=== PATIENT | male | born 1960 | race Caucasian/White ===

== ENCOUNTER 2016-11-30 06:14 | Inpatient (IN) | payer MEDICAID, OTHER ==
[~2016-11-30] VITALS: Ht 195.6 cm; Wt 120.2 kg
[2016-11-30] MEDS ORDERED: morphine 4 MG/ML VIAL IV STA (06:33)
[2016-11-30] MEDS ORDERED: ONDANSETRON 4 MG INJ IV STA (06:33)
[2016-11-30] MEDS ORDERED: MAGNESIUM SULFATE 2 GM, MULTIVITAMINS 10 ML, THIAMINE 100 MG, FOLIC ACID 1 MG in SOD CH... IV STA (06:33)
[2016-11-30] MEDS: LORAZEPAM 2 MG INJ IV PRN ×5 (06:53→22:09)
[2016-11-30 07:32] LABS: BASOPHILS % 0.4 % (0.0-2.0); EOSINOPHILS # 0.1 10^3/ul (0.0-0.5); EOSINOPHILS % 1.8 % (0.0-7.0); HEMATOCRIT 48.9 % (42.0-52.0); HEMOGLOBIN 16.7 g/dl (14.0-18.0); LYMPHOCYTES # 1.6 10^3/ul (0.8-2.9); LYMPHOCYTES % 21.6 % (15.0-51.0); MEAN CORPUSCULAR HEMOGLOBIN 32.8 pg (29.0-33.0); MEAN CORPUSCULAR HGB CONC 34.2 g/dl (32.0-37.0); MEAN PLATELET VOLUME 8.4 fl (7.4-10.4); MONOCYTE # 0.9 10^3/ul (0.3-0.9); MONOCYTES % 11.4 % (0.0-11.0); NEUTROPHIL # 4.9 10^3/ul (1.6-7.5); NEUTROPHILS % 64.8 % (39.0-77.0); PLATELET COUNT 126 10^3/UL (140-440); RED BLOOD COUNT 5.09 10^6/ul (4.70-6.10); RED CELL DISTRIBUTION WIDTH 14.4 % (11.5-14.5); UNCORRECTED WBC 7.6 10^3/ul (4.8-10.8); WHITE BLOOD COUNT 7.6 10^3/ul (4.8-10.8)
[2016-11-30 07:38] LABS: ALBUMIN 4.7 g/dl (3.3-4.9); CHLORIDE 102 mmol/L (97-110); CONDITION 1; SODIUM 146 mmol/L (135-144)
[2016-11-30 07:39] LABS: POTASSIUM 4.1 mmol/L (3.5-5.1)
[2016-11-30 07:41] LABS: ALANINE AMINOTRANSFERASE 102 IU/L (13-69); ALBUMIN/GLOBULIN RATIO 0.97; ALKALINE PHOSPHATASE 115 IU/L (42-121); ANION GAP 26 (8-16); ASPARTATE AMINO TRANSFERASE 205 IU/L (15-46); BILIRUBIN,INDIRECT 0.5 mg/dl (0-1.1); BILIRUBIN,TOTAL 0.5 mg/dl (0.2-1.3); BLOOD UREA NITROGEN 13 mg/dl (7-20); CALCIUM 9.3 mg/dl (8.4-10.2); CARBON DIOXIDE 22 mmol/L (21-31); CREATININE 1.12 mg/dl (0.61-1.24); GLUCOSE 87 mg/dl (70-220); TOTAL PROTEIN 9.5 g/dl (6.1-8.1)
[2016-11-30 07:45] LABS: ACETAMINOPHEN < 10.0 ug/ml (10.0-30.0); SALICYLATE < 1.0 mg/dl (5.0-30.0)
--- NOTE | 2016-11-30 08:02 | RADRPT ---
PROCEDURE: CT Abdomen and Pelvis without contrast. CLINICAL INDICATION: Abdominal pain TECHNIQUE: CT scan of the abdomen and pelvis was performed on a multidetector high-resolution CT s canner without intravenous contrast. Coronal and sagittal reformatted images were obtained from the axial source images. Images were reviewed on a high-resolution PACS workstation. The total exam CTD I equals 22mGy and the total exam DLP equals 1569mGy-cm. One or more of the following dose reduction techniques were used: Automated exposure control, Adjustment of the mA and/or kV according to patie nt size, and/or use of iterative reconstruction technique. COMPARISON: None. FINDINGS: Evaluation of the solid organs is limited given the lack of intravenous contrast administration. Bibasilar atelectasis. Left upper abdominal wall fat containing hernia with abdominal wall defect measuring 4.4 x 5.6 cm (t ransverse by craniocaudal) Diffuse hypoattenuation of the liver. The pancreas, spleen and adrenals are grossly unremarkable. The left kidney is surgically absent. Punctate nonobstructing right renal stone measuring 1 mm. No evidence of hydronephrosis. No focal pericholecystic inflammatory changes. No bowel obstruction. The appendix is not visualized but there is no focal inflammatory stranding i n the right lower quadrant. Colonic diverticulosis. No significant retroperitoneal lymphadenopathy, ascites or evidence of pneumoperitoneum. Fat contain ing left inguinal hernia. Aortoiliac atherosclerosis. Lumbar dextroscoliosis with degenerative changes. IMPRESSION: Punctate 1mm nonobstructing right renal stone. Left upper abdominal wall fat containing hernia with abdominal wall defect measuring 4.4 x 5.6 cm. Fat containing left inguinal hernia. Hepatic steatosis. Colonic diverticulosis. RPTAT: AA .Quinn Clark MD, MD Date Time Electronically viewed and signed by .Quinn Clark MD, on 11/30/2016 08:02 .T/
[2016-11-30] MEDS ORDERED: LABETALOL HCL 20MG INJ IV ONE (09:00)
[2016-11-30] MEDS ORDERED: GABA-528 PO (09:07)
[2016-11-30] MEDS ORDERED: AMLO-147 PO (09:07)
--- NOTE | 2016-11-30 09:55 | ERA ---
ER Documentation Chief Complaint Date/Time DATE: 11/30/16 TIME: 09:47 Chief Complaint suicidal thoughts to run into traffic after mom disowned him yesterday HPI Patient is a 55-year-old male who comes in with 2 separate complaints. First complaint is that he has a history of renal cell carcinoma that was removed 2-3 years ago and that he has had increasing abdominal pain in that area ever since then. He says the pain has significantly increased in last 6 months and he has failed to follow up with anybody. He is concerned that the cancer has recurred. He has not had any significant weight loss, nausea, vomiting, diarrhea, dysuria, or hematuria. The second complaint is that he is suicidal. He has a plan to run into traffic and be hit by a bus or a vehicle. He says he is attempted this but every car has stopped. The remainder review systems are negative. ROS All systems reviewed and are negative except as per history of present illness. Medications Home Meds Reported Medications Gabapentin* (Gabapentin*) 800 Mg Tablet, 800 MG PO TID, #90 TAB 11/30/16 Amlodipine Besylate* (Amlodipine Besylate*) 10 Mg Tablet, 10 MG PO DAILY, #30 TAB 11/30/16 Allergies Allergies: Coded Allergies: No Known Allergy (Unverified , 11/30/16) PMhx/Soc History of Surgery: Yes (left nephrectomy) Anesthesia Reaction: No Hx Respiratory Disorders: No Hx Cardiac Disorders: Yes (htn) Hx Psychiatric Problems: Yes (anxiety,depresion) Hx Alcohol Use: Yes Hx Tobacco Use: No Smoking Status: Unknown if ever smoked FmHx Family History: diabetes Physical Exam Vitals Vital Signs Date Time Temp Pulse Resp B/P Pulse Ox O2 Delivery O2 Flow Rate FiO2 11/30/16 06:21 99.0 123 20 178/113 98 Physical Exam Const: [] Well-developed well-nourished male sitting on the bed with a depressed affect Head: Atraumatic normocephalic Eyes: Normal Conjunctiva ENT: Normal External Ears, Nose and Mouth. Neck: Full range of motion..~ No meningismus. Resp: Clear to auscultation bilaterally Cardio: Regular rate and rhythm, no murmurs Abd: Soft, patient reports tenderness to palpation around the left upper abdomen, in particular the area of the prior nephrectomy, there is no appreciable mass, no rebound, no guarding, non distended. Normal bowel sounds Skin: No petechiae or rashes Back: No midline or flank tenderness Ext: No cyanosis, or edema Neur: Awake and alert oriented 3 with a GCS of 15 Psych: Depressed mood and affect Result Diagram: 11/30/1615 11/30/16 0715 Results 24 hrs Laboratory Tests Test 11/30/16 07:15 Acetaminophen Level < 10.0ug/ml Alanine Aminotransferase (ALT/SGPT) 102IU/L Albumin 4.7g/dl Albumin/Globulin Ratio 0.97 Alkaline Phosphatase 115IU/L Anion Gap 26 Aspartate Amino Transf (AST/SGOT) 205IU/L Basophils # 0.010^3/ul Basophils % 0.4% Blood Urea Nitrogen 13mg/dl Calcium Level 9.3mg/dl Carbon Dioxide Level 22mmol/L Chloride Level 102mmol/L Creatinine 1.12mg/dl Direct Bilirubin 0.00mg/dl Eosinophils # 0.110^3/ul Eosinophils % 1.8% Ethyl Alcohol Level 107.0mg/dl Globulin 4.80g/dl Glucose Level 87mg/dl Hematocrit 48.9% Hemoglobin 16.7g/dl Indirect Bilirubin 0.5mg/dl Lipase 226U/L Lymphocytes # 1.610^3/ul Lymphocytes % 21.6% Mean Corpuscular Hemoglobin 32.8pg Mean Corpuscular Hemoglobin Concent 34.2g/dl Mean Corpuscular Volume 96.0fl Mean Platelet Volume 8.4fl Monocytes # 0.910^3/ul Monocytes % 11.4% Neutrophils # 4.910^3/ul Neutrophils % 64.8% Nucleated Red Blood Cells # 0.010^3/ul Nucleated Red Blood Cells % 0.0/100WBC Platelet Count 90406^3/UL Potassium Level 4.1mmol/L Red Blood Count 5.0910^6/ul Red Cell Distribution Width 14.4% Salicylates Level < 1.0mg/dl Sodium Level 146mmol/L Total Bilirubin 0.5mg/dl Total Protein 9.5g/dl White Blood Count 7.610^3/ul Current Medications Medications (Trade) Dose Ordered Sig/Remi Route PRN Reason Start Time Stop Time Status Last Admin Dose Admin Morphine Sulfate (morphine) 4 mg ONCE STAT IV 11/30/16 06:33 11/30/16 06:39 DC 11/30/16 06:53 Ondansetron HCl 4 mg 4 mg ONCE STAT IV 11/30/16 06:33 11/30/16 06:39 DC 11/30/16 06:53 Magnesium Sulfate/ Multivitamins/ Thiamine HCl/ Folic Acid/Sodium Chloride (Magnesium Sulfate/Mvi Adult/ Vitamin B1/Folic Acid/NS) 1,015.2 ml @ 500 mls/ hr Q2H2M STAT IV 11/30/16 06:33 11/30/16 08:34 DC 11/30/16 06:33 Lorazepam (Ativan) 1 mg PRN PRN IV pt is an alcoholic/ withdrawal 11/30/16 07:00 11/30/16 06:53 Labetalol HCl (Labetalol) 10 mg ONCE ONCE IV 11/30/16 09:00 11/30/16 09:01 DC 11/30/16 09:21 Procedures/MDM CT of the abdomen and pelvis reveals that he has a fat-containing hernia in his prior nephrectomy scar without any evidence of obstruction. He does not have any acute intra-abdominal process noted. While the patient was here he started to have alcohol withdrawal type symptoms with the shakes. I was informed by the nursing staff and social work that the patient could not be transferred to a psychiatric facility with these type symptoms as they could not handle alcohol withdrawal acutely. They advised me that he had to be admitted to the hospital until his acute symptoms resolved. 0940: I consult with the hospitalist for admission. The patient has been advised that he will be admitted to the hospital for acute alcohol withdrawal. Once he is medically stable he will be transferred to psychiatric facility for his depression and suicidal ideation. He is also been advised that he needs to follow-up as an outpatient for his non-entrapped hernia. Departure Diagnosis: Primary Impression: Abdominal wall hernia Additional Impressions: Abdominal pain Qualified Code: R10.12 - Left upper quadrant pain Alcohol abuse Alcohol withdrawal Qualified Code: F10.230 - Alcohol withdrawal, uncomplicated Depression Qualified Code: F33.2 - Severe episode of recurrent major depressive disorder , without psychotic features Suicidal ideations Condition: HODAN Keene Nov 30, 2016 09:55
[2016-11-30] MEDS ORDERED: ACETAMINOPHEN 325 MG TAB PO PRN ×2 (10:00→13:30)
[2016-11-30] MEDS ORDERED: ONDANSETRON 4 MG INJ IV PRN ×2 (10:00→13:30)
[2016-11-30] MEDS ORDERED: DOCUSATE SODIUM 100 MG CAP PO PRN (13:30)
[2016-11-30] MEDS ORDERED: ACETAMINOPHEN 650 MG SUPP PR PRN (13:30)
[2016-11-30] MEDS ORDERED: BISACODYL (EC) 5 MG TAB PO PRN (13:30)
[2016-11-30] MEDS ORDERED: NACL 0.9% 3 ML SYG IV SCH (13:30)
[2016-11-30 15:21] LABS: CK-MB 2.06 ng/ml (0.0-2.4); TROPONIN-I 0.016 ng/ml (0.00-0.12)
[2016-11-30] MEDS: CHLORDIAZEPOXIDE 25 MG CAP PO SCH ×2 (16:04→22:10)
[2016-11-30] MEDS: GABAPENTIN 300 MG CAP PO SCH ×2 (16:05→22:21)
[2016-11-30] MEDS: AMLODIPINE 10 MG TAB PO SCH (16:05)
[2016-11-30] MEDS: FAMOTIDINE 20 MG TAB PO SCH ×2 (16:06→22:09)
[2016-11-30] MEDS: DEXTROSE 5%-0.45% NACL 1,000 ML IV SCH (17:37)
--- NOTE | 2016-11-30 18:57 | HP ---
DATE OF ADMISSION: 11/30/2016 CONSULTANTS: Tele psych. REASON FOR ADMISSION: Depression and suicidal ideation. HISTORY OF PRESENT ILLNESS: This is a 55-year-old gentleman with past medical history of alcohol de pendency, drinks about two 40 ounces of beer per day, history of renal carcinoma status post nephrec manda, neuropathy and major depression who presented to [facility] secondary to hav ing suicidal ideation after he had an argument with his mother yesterday afternoon over the phone. He has plans to hurt himself by jumping in front of the bus and also he was complaining of having ab dominal pain. Upon arrival to emergency room, the patient's alcohol level was elevated at 107. His sodium 146, AST 205, ALT 102, creatinine kinase 281. CBC is within normal limits except the platel ets 126. The patient is very disheveled and although he is awake, alert, oriented, he still continu es to have suicidal ideation and still is upset regarding the conversation with his mother. Upon ar rival to emergency room, the patient was treated with magnesium sulfate, morphine, Zofran and labeta lol. He denies any chest pain, shortness of breath, nausea, vomiting, diarrhea. No headache, dizzi ness, numbness, no change in visual acuity, diplopia, photophobia. No numbness in his extremities a t this time, although he does complain of having history of neuropathy which has been having difficu lty with ambulation. No dysuria, hematuria, urgency, incontinence. No difficulty with p.o. intake. No change in the color of stool. The other 12 review of systems has been found to be negative exc ept for what was stated above. Positive for history of depression and suicidal ideation. PAST MEDICAL AND SURGICAL HISTORY: As above per HPI. MEDICATIONS: 1. Amlodipine. 2. Gabapentin. ALLERGIES: NO KNOWN DRUG ALLERGIES. FAMILY HISTORY: Positive for hypertension and coronary artery disease. SOCIAL HISTORY: Positive for smoking 10 to 15 cigarettes per day. At this time, he smokes cigars s econdary to not being able to afford cigarettes. He drinks two 24 ounce beers per day, but he also drinks vodka. He denies using any illicit drug. REVIEW OF SYSTEMS: As above per HPI, otherwise 12 review of systems has been found to be negative. PHYSICAL EXAMINATION: VITAL SIGNS: Temperature 98.3, pulse 86, respiration 18, blood pressure 158/105, saturating 95% in room air. GENERAL APPEARANCE: The patient is lying in bed comfortably without any distress. He is not agitat ed, very disheveled and unkempt. Body habitus moderately overweight with BMI 25.5. EYES AND ENT: Conjunctivae and lids are normal. Pupils are normal. Extraocular normal. Hearing g rossly normal. Lips are normal. Oral mucosa mildly dry. NECK: Supple. Trachea is midline. No lymphadenopathy. RESPIRATORY: Effort is normal. Clear to auscultate bilaterally. CARDIOVASCULAR: Normal S1, S2. Regular rhythm and rate. No murmur, no bruits, no edema. Peripher al pulses, radial pulses palpable. Cap refill is normal. CHEST: Normal expansion of thorax during inspiration. GASTROINTESTINAL: Abdomen is soft, nontender, not distended. Bowel sounds present. No guarding, n o rebound. GENITOURINARY: Deferred. MUSCULOSKELETAL: Upper and lower extremities within normal limits. Full range of motion. Strength 5/5 both upper and lower extremities. NEUROLOGIC: He is awake, alert, oriented. LABORATORY WORK AND IMAGING: WBC 7.6, hemoglobin 15.7, hematocrit 48.9, platelets 126. Sodium 146, potassium 4.1, chloride 102, bicarbonate 22, BUN 13, creatinine 1.12, glucose 87, AST 12, ALT 102. Creatinine kinase 281, total protein 9.5. Alcohol level 107. ASSESSMENT AND PLAN: 1. Alcohol intoxication. The patient has been placed on banana bag, Librium, Ativan as needed. 2. Suicidal ideation. Tele psych has been consulted. The patient is medically clear and the patie nt does not request any withdrawal. The patient may be transferred to psych facility. 3. History of alcohol abuse as above. Patient has been placed on banana bag, Librium and lorazepam . Education was provided regarding the risk of alcoholism. 4. Thrombocytopenia is likely secondary to alcoholism. 5. Acute renal insufficiency. The patient has been placed on IV fluids. Follow up renal panel in a.m. 6. Severe depression. The patient will be started on his home medication Zoloft which he used to b e on in the past but he has not been able to follow it up. 7. For deep venous thrombosis prophylaxis at this time, I will place the patient on sequential com pression devices. 8. For gastrointestinal prophylaxis on Pepcid. 9. We will continue to monitor patient closely. Further recommendations, management and treatment as per clinical course. Total amount of time was spent for evaluation and work up 40 minutes. Dictated By: SAMANTHA ESTES MD PN/NTS Conf#: [id number] DID#: [id number]
[2016-11-30 20:21] LABS: ADD UMIC YES; URINE BILIRUBIN (Dip) NEGATIVE (NEGATIVE); URINE BLOOD (Dip) 1+ (NEGATIVE); URINE COLOR LT. YELLOW (YELLOW); URINE GLUCOSE (Dip) NEGATIVE (NEGATIVE); URINE KETONES (Dip) NEGATIVE (NEGATIVE); URINE LEUKOCYTE ESTERASE (Dip) NEGATIVE (NEGATIVE); URINE NITRITE (Dip) NEGATIVE (NEGATIVE); URINE TOTAL PROTEIN (Dip) 2+ (NEGATIVE); URINE UROBILINOGEN (Dip) 0.2 E.U./dL (0.1-1.0)
[2016-11-30 20:29] LABS: BARBITURATES Negative (NEGATIVE)
[2016-11-30 20:31] LABS: CANNABINOIDS Positive (NEGATIVE); OPIATES Positive (NEGATIVE)
[2016-11-30 20:33] LABS: BENZODIAZEPINES Negative (NEGATIVE)
[2016-11-30 20:41] VITALS: TEMP 98.7
[2016-11-30] MEDS: METOPROLOL 25 MG TAB PO SCH (20:44)
[2016-11-30] MEDS ORDERED: SERTRALINE 50 MG TAB PO SCH (21:00)
[2016-11-30 21:16] LABS: TROPONIN-I 0.021 ng/ml (0.00-0.12)
[2016-11-30 21:22] LABS: CK-MB 2.02 ng/ml (0.0-2.4)
[2016-12-01] VITALS (12 sets, daily range): BP systolic 142–170; BP diastolic 92–112; PULSE 79–95; RESP 18–22; Ht 195.6 cm; Wt 120.2 kg
[2016-12-01 00:28] LABS: COCAINE Negative (NEGATIVE)
[2016-12-01] MEDS: DEXTROSE 5%-0.45% NACL 1,000 ML IV SCH ×3 (00:59→21:58)
[2016-12-01 01:57] LABS: TROPONIN-I 0.019 ng/ml (0.00-0.12)
[2016-12-01 02:00] LABS: CK-MB 1.57 ng/ml (0.0-2.4)
[2016-12-01] MEDS: LORAZEPAM 2 MG INJ IV PRN ×4 (02:35→20:48)
[2016-12-01] MEDS: AMLODIPINE 10 MG TAB PO SCH (08:25)
[2016-12-01] MEDS: FAMOTIDINE 20 MG TAB PO SCH ×2 (08:25→20:45)
[2016-12-01] MEDS: METOPROLOL 25 MG TAB PO SCH ×2 (08:25→20:48)
[2016-12-01] MEDS: CHLORDIAZEPOXIDE 25 MG CAP PO SCH ×3 (08:25→20:45)
[2016-12-01] MEDS: MULTIVITAMINS 10 ML, THIAMINE 100 MG, FOLIC ACID 1 MG in SOD CHLORIDE 0.9% 1,000 ML IVPB SCH (08:26)
[2016-12-01] MEDS: GABAPENTIN 300 MG CAP PO SCH ×3 (08:26→20:45)
[2016-12-01 10:06] LABS: BASOPHILS % 0.4 % (0.0-2.0); EOSINOPHILS # 0.2 10^3/ul (0.0-0.5); EOSINOPHILS % 2.9 % (0.0-7.0); HEMATOCRIT 43.4 % (42.0-52.0); HEMOGLOBIN 14.8 g/dl (14.0-18.0); LYMPHOCYTES # 1.3 10^3/ul (0.8-2.9); MEAN CORPUSCULAR HEMOGLOBIN 33.1 pg (29.0-33.0); MEAN CORPUSCULAR HGB CONC 34.1 g/dl (32.0-37.0); MEAN CORPUSCULAR VOLUME 96.9 fl (82.0-101.0); MEAN PLATELET VOLUME 8.6 fl (7.4-10.4); MONOCYTE # 0.8 10^3/ul (0.3-0.9); MONOCYTES % 12.5 % (0.0-11.0); NEUTROPHIL # 4.2 10^3/ul (1.6-7.5); NEUTROPHILS % 64.2 % (39.0-77.0); RED BLOOD COUNT 4.48 10^6/ul (4.70-6.10); RED CELL DISTRIBUTION WIDTH 14.4 % (11.5-14.5); UNCORRECTED WBC 6.5 10^3/ul (4.8-10.8); WHITE BLOOD COUNT 6.5 10^3/ul (4.8-10.8)
[2016-12-01 10:08] LABS: ALBUMIN 4.1 g/dl (3.3-4.9)
[2016-12-01 10:09] LABS: POTASSIUM 3.4 mmol/L (3.5-5.1)
[2016-12-01 10:11] LABS: BILIRUBIN,INDIRECT 0.6 mg/dl (0-1.1); BILIRUBIN,TOTAL 0.6 mg/dl (0.2-1.3); CONDITION 1; CREATININE 0.95 mg/dl (0.61-1.24); TOTAL PROTEIN 7.6 g/dl (6.1-8.1)
[2016-12-01 10:12] LABS: CALCIUM 9.2 mg/dl (8.4-10.2); MAGNESIUM 1.7 mg/dl (1.7-2.5)
[2016-12-01 10:41] LABS: THYROID STIMULATING HORMONE 3.87 MIU/L (0.465-4.680)
[2016-12-01] MEDS ORDERED: POTASSIUM CHLORIDE (SR) 10 MEQ TAB PO ONE (11:00)
[2016-12-01] MEDS: NICOTINE (14 MG/24 HR) PATCH TRANSDERM SCH (11:30)
[2016-12-01] MEDS: traMADol 50 MG TAB PO PRN ×2 (11:31→18:16)
--- NOTE | 2016-12-01 11:31 | PN ---
DATE: 12/01/2016 TIME OF EVALUATION: 10:30 a.m. SUBJECTIVE DATA: Complains of abdominal pain. The patient has a 1:1 health and safety consultant. OBJECTIVE DATA: VITAL SIGNS: Temperature 98.4, pulse rate 94, respiratory rate 18, blood pressure 154/101, oxygen saturation 98% on room air. GENERAL: This is an obese male patient lying in bed in no apparent distress. HEENT: Head normocephalic and atraumatic. Eyes: Anicteric sclerae. Conjunctivae clear. ENT: Nasal septum is midline. Oral mucosa is dry. NECK: Supple. No JVD noticed. RESPIRATORY: Bilaterally clear to auscultation. No adventitious breath sounds heard. No use of accessory muscles of respiration. CARDIAC: Regular rate and rhythm. No murmurs. ABDOMEN: Soft. Nontender. Left-sided hernia that is reducible. Bowel sounds hypoactive in all 4 quadrants. GENITOURINARY: Deferred. EXTREMITIES: No cyanosis, no clubbing. Bilateral lower extremity trace pedal edema. Peripheral pulses palpable. Bilateral toenail onychomycosis. NEUROLOGIC: The patient is awake, alert and oriented. Cranial nerves are grossly intact. LABORATORY AND DIAGNOSTIC DATA: WBC 6.5, hemoglobin 14.8, hematocrit 43.4, platelet count pending. Sodium 139, potassium 3.4, chloride 99, carbon dioxide 28, anion gap 15, BUN 18, creatinine 0.95, glucose 140, calcium 9.2, magnesium 1.7, AST 139, ALT 78, alkaline phosphatase 84. ASSESSMENT AND PLAN: 1. Acute alcohol intoxication. The patient is on daily banana bag. The patient is on a tapering dose of Librium. Continue IV Ativan as needed for any severe alcohol withdrawal, delirium. 2. Suicidal ideation. Continue 1:1 sitter. Await tele psychiatric evaluation. 3. Essential hypertension. Continue antihypertensives. Blood pressure fairly well controlled. 4. Peripheral neuropathy. Continue gabapentin. 5. Abdominal hernia. CT scan of the abdomen and pelvis showing left upper abdominal wall fat containing hernia with abdominal wall defect measuring 4.4 x 5.6 cm. There is no evidence of any bowel obstruction. 6. Depression with suicidal thoughts. Continue antidepressants. 7. History of renal cell carcinoma. Status post left nephrectomy. Continue to monitor renal function. 8. Mild rhabdomyolysis. Continue IV hydration. 9. Thrombocytopenia, most probably secondary to underlying alcohol abuse. Monitor. 10. Transaminitis, most probably secondary to underlying alcohol abuse. Monitor. 11. Fluid, electrolytes and nutrition. Regular diet as tolerated. 12. Deep venous thrombosis prophylaxis with bilateral sequential compression devices. 13. Gastrointestinal prophylaxis. Histamine 2 receptor blockers. PLAN: Continue current care. Await tele psychiatry evaluation. Start the patient on a nicotine patch. Case discussed with Dr. Cason. ELEANOR CASON MD, AM/SANTY Conf#: [id number] DID#: [id number] MTDD
[2016-12-01 13:29] LABS: PLATELET COUNT 90 10^3/UL (140-440)
--- NOTE | 2016-12-01 17:35 | PSY ---
Date/Time of Note Date/Time of Note DATE: 12/01/16 TIME: 17:27 Psychiatric Subjective Eval Consent Pt consented to telemedicine: Yes Subjective Evaluation Patient location: inpatient Chief Complaint: suicidal thoughts to run into traffic after mom disowned him yesterday Reason for consult: Evaluation for suicidal ideation History of present illness Patient with a long history of alcohol issues. Got into a fight with his mother who disowned him. He typically drinkgs pint to a pint and a fifth of vodka a day. He was intoxicated on admission. Made suicidal statements. Patient reports he is feeling better now. He states that he has been given a lot of support at the hospital and he has had a friend visit who wants to get him involved with the music/mormonism team at [facility]. Patient was feelign very down on admission but reports "now I have hope." He does not want to go to a psychiatric hospital but prefers to be discharged when physically ready. Patient reports he has resources from hospital given to him - AA and other outpatient programs. He is more optimistic. He says that "the kindness of the people here has been overwhelming." Patient states he does not feel depressed. He is more optimistic. He used to feel hopeless but now has hope for a future. He denies suicidal ideation and homicidal ideation. He denies psychosis. Past psychiatric history Has had depression and past antidepressant treatment. Alcohol rehab programs in the past. Past suicide attempts as well - administration manager traffic and dare cars to hit him. Hospitalization: Suicidal Attempt(s) Family History Problems Family History Problems: (1) Family history of hypertension Relations: 33 FATHER (2) FH: non-Hodgkin's lymphoma Relations: 33 FATHER Medical history Problems Medical Problems: (1) Abdominal pain Status: Acute (2) Abdominal wall hernia Status: Acute (3) Alcohol abuse Status: Acute (4) Alcohol withdrawal Status: Acute (5) Depression Status: Acute (6) Suicidal ideations Status: Acute Allergies: Coded Allergies: No Known Allergy (Unverified , 11/30/16) Substance Abuse Substance abuse history: Yes Prior substance abuse treatmen: Yes Social History Marital status: single DPA/Conservatorship: No 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 Psychiatric Objective Eval Mental Status Examination: Appearance: Groomed Eye Contact: Good Psychomotor Activity: Normal Behavior: Friendly, Cooperative Speech: Clear AFFECT: Appropriate Mood: Appropriate/Full Though Process: Linear Thought Content: Normal Suicidal: No Homicidal: No On 72 hour hold: No Orientation: x4 Cognition: Alert Insight: Intact Judgement: Mild Laboratory Results Laboratory Tests Test 11/30/16 07:15 11/30/16 14:18 11/30/16 19:11 11/30/16 20:22 Acetaminophen Level < 10.0ug/ml Alanine Aminotransferase (ALT/SGPT) 102IU/L Albumin 4.7g/dl Albumin/Globulin Ratio 0.97 Alkaline Phosphatase 115IU/L Anion Gap 26 Aspartate Amino Transf (AST/SGOT) 205IU/L Basophils # 0.010^3/ul Basophils % 0.4% Blood Urea Nitrogen 13mg/dl Calcium Level 9.3mg/dl Carbon Dioxide Level 22mmol/L Chloride Level 102mmol/L Creatinine 1.12mg/dl Direct Bilirubin 0.00mg/dl Eosinophils # 0.110^3/ul Eosinophils % 1.8% Ethyl Alcohol Level 107.0mg/dl Globulin 4.80g/dl Glucose Level 87mg/dl Hematocrit 48.9% Hemoglobin 16.7g/dl Indirect Bilirubin 0.5mg/dl Lipase 226U/L Lymphocytes # 1.610^3/ul Lymphocytes % 21.6% Mean Corpuscular Hemoglobin 32.8pg Mean Corpuscular Hemoglobin Concent 34.2g/dl Mean Corpuscular Volume 96.0fl Mean Platelet Volume 8.4fl Monocytes # 0.910^3/ul Monocytes % 11.4% Neutrophils # 4.910^3/ul Neutrophils % 64.8% Nucleated Red Blood Cells # 0.010^3/ul Nucleated Red Blood Cells % 0.0/100WBC Platelet Count 66606^3/UL Potassium Level 4.1mmol/L Red Blood Count 5.0910^6/ul Red Cell Distribution Width 14.4% Salicylates Level < 1.0mg/dl Sodium Level 146mmol/L Total Bilirubin 0.5mg/dl Total Protein 9.5g/dl White Blood Count 7.610^3/ul Creatine Kinase 281IU/L 290IU/L Creatine Kinase Index 0.7 0.7 Creatinine Kinase MB (Mass) 2.06ng/ml 2.02ng/ml Troponin I 0.016ng/ml 0.021ng/ml Urine Amphetamines Screen Negative Urine Barbiturates Negative Urine Benzodiazepines Screen Negative Urine Bilirubin NEGATIVE Urine Cannabinoids Positive Urine Clarity CLEAR Urine Cocaine Screen Negative Urine Color LT. YELLOW Urine Glucose NEGATIVE% Urine Hemoglobin 1+ Urine Ketones NEGATIVE Urine Leukocyte Esterase NEGATIVE Urine Microscopic RBC 2-5/HPF Urine Microscopic WBC 2-5/HPF Urine Nitrite NEGATIVE Urine Opiates Screen Positive Urine Specific [place] 1.015 Urine Total Protein 2+ Urine Urobilinogen 0.2 E.U./dL Urine pH 7.0 Test 12/01/16 01:25 12/01/16 09:30 Creatine Kinase 300IU/L Creatine Kinase Index 0.5 Creatinine Kinase MB (Mass) 1.57ng/ml Troponin I 0.019ng/ml Alanine Aminotransferase (ALT/SGPT) 78IU/L Albumin 4.1g/dl Alkaline Phosphatase 84IU/L Anion Gap 15 Aspartate Amino Transf (AST/SGOT) 139IU/L Basophils # 0.010^3/ul Basophils % 0.4% Blood Morphology Comment Blood Urea Nitrogen 18mg/dl Calcium Level 9.2mg/dl Carbon Dioxide Level 28mmol/L Chloride Level 99mmol/L Creatinine 0.95mg/dl Differential Comment AUTO w/SCAN Direct Bilirubin 0.00mg/dl Eosinophils # 0.210^3/ul Eosinophils % 2.9% Glucose Level 140mg/dl Hematocrit 43.4% Hemoglobin 14.8g/dl Indirect Bilirubin 0.6mg/dl Lymphocytes # 1.310^3/ul Lymphocytes % 20.0% Magnesium Level 1.7mg/dl Mean Corpuscular Hemoglobin 33.1pg Mean Corpuscular Hemoglobin Concent 34.1g/dl Mean Corpuscular Volume 96.9fl Mean Platelet Volume 8.6fl Monocytes # 0.810^3/ul Monocytes % 12.5% Neutrophils # 4.210^3/ul Neutrophils % 64.2% Nucleated Red Blood Cells # 0.010^3/ul Nucleated Red Blood Cells % 0.0/100WBC Platelet Count 9010^3/UL Potassium Level 3.4mmol/L Red Blood Count 4.4810^6/ul Red Cell Distribution Width 14.4% Sodium Level 139mmol/L Thyroid Stimulating Hormone (TSH) 3.870MIU/L Total Bilirubin 0.6mg/dl Total Protein 7.6g/dl White Blood Count 6.510^3/ul Assessment and Plan Assessment/Diagnosis [place] I: Unspecified depressive Disorder, Alcohol Use Disorder Recommendation/Plan Medication Management Support alcohol withdrawal. Would not start antidepressant at this time. Patient needs referal to outpatient substance abuse program as well as outpatient psychiatry. Psychotherapy Brief supportive therapy Pt. Caregiver/Family Education N/A Follow-up/Disposition Patient does not want psychiatric hospitalization. While this might be helpful in transitioning him to outpatient care or a rehab program, he does not currently meet the criteria for involuntary hospitalization. Please provide resources for AA and local treatment options. SHEEBA SESAY Dec 01, 2016 17:35
[2016-12-01] MEDS: SERTRALINE 50 MG TAB PO SCH (20:48)
[2016-12-02] VITALS (13 sets, daily range): BP systolic 126–158; BP diastolic 76–107; PULSE 76–94; RESP 16–20
[2016-12-02] MEDS: LORAZEPAM 2 MG INJ IV PRN (02:33)
[2016-12-02 07:34] LABS: PHOSPHORUS 3.7 mg/dl (2.5-4.9)
[2016-12-02 07:35] LABS: MAGNESIUM 1.4 mg/dl (1.7-2.5)
[2016-12-02 07:41] LABS: POTASSIUM 3.6 mmol/L (3.5-5.1)
[2016-12-02 07:43] LABS: ALBUMIN/GLOBULIN RATIO 1.14; BILIRUBIN,INDIRECT 0.4 mg/dl (0-1.1); BILIRUBIN,TOTAL 0.4 mg/dl (0.2-1.3); CREATININE 0.98 mg/dl (0.61-1.24); TOTAL PROTEIN 7.5 g/dl (6.1-8.1)
[2016-12-02 07:44] LABS: CALCIUM 10.1 mg/dl (8.4-10.2)
[2016-12-02 07:51] LABS: TROPONIN-I 0.049 ng/ml (0.00-0.12)
[2016-12-02 07:52] LABS: CK-MB 0.87 ng/ml (0.0-2.4)
[2016-12-02] MEDS: CHLORDIAZEPOXIDE 25 MG CAP PO SCH ×3 (08:18→20:11)
[2016-12-02] MEDS: NICOTINE (14 MG/24 HR) PATCH TRANSDERM SCH (08:18)
[2016-12-02] MEDS: GABAPENTIN 300 MG CAP PO SCH ×3 (08:18→20:11)
[2016-12-02] MEDS: FAMOTIDINE 20 MG TAB PO SCH ×2 (08:18→20:11)
[2016-12-02] MEDS: METOPROLOL 25 MG TAB PO SCH ×2 (08:19→20:13)
[2016-12-02] MEDS: AMLODIPINE 10 MG TAB PO SCH (08:19)
[2016-12-02] MEDS: MULTIVITAMINS 10 ML, THIAMINE 100 MG, FOLIC ACID 1 MG in SOD CHLORIDE 0.9% 1,000 ML IVPB SCH (09:00)
[2016-12-02 09:24] LABS: WHITE BLOOD COUNT 6.6 10^3/ul (4.8-10.8)
[2016-12-02 09:25] LABS: BASOPHILS % 0.6 % (0.0-2.0); EOSINOPHILS % 3.2 % (0.0-7.0); HEMATOCRIT 44.6 % (42.0-52.0); HEMOGLOBIN 15.4 g/dl (14.0-18.0); LYMPHOCYTES % 21.8 % (15.0-51.0); MEAN CORPUSCULAR HGB CONC 34.5 g/dl (32.0-37.0); MEAN CORPUSCULAR VOLUME 95.7 fl (82.0-101.0); MEAN PLATELET VOLUME 11.4 fl (7.4-10.4); NEUTROPHILS % 62.9 % (39.0-77.0); PLATELET COUNT 92 10^3/UL (140-440); RED BLOOD COUNT 4.66 10^6/ul (4.70-6.10); RED CELL DISTRIBUTION WIDTH 13.4 % (11.5-14.5)
[2016-12-02 09:26] LABS: EOSINOPHILS # 0.2 10^3/ul (0.0-0.5); LYMPHOCYTES # 1.4 10^3/ul (0.8-2.9); MONOCYTE # 0.7 10^3/ul (0.3-0.9); NEUTROPHIL # 4.1 10^3/ul (1.6-7.5)
--- NOTE | 2016-12-02 10:21 | PN ---
Date/Time of Note Date/Time of Note DATE: 12/02/16 TIME: 10:19 Assessment/Plan VTE Prophylaxis VTE Prophylaxis Intervention: SCD's Lines/Catheters IV [facility] Saline Lock Assessment/Plan Chief Complaint/Hosp Course ASSESSMENT AND PLAN: 55M with: 1. Acute alcohol intoxication - slowly improving. The patient is on daily banana bag. The patient is on a tapering dose of Librium. Continue IV Ativan as needed for any severe alcohol withdrawal, delirium. 2. Suicidal ideation. Continue 1:1 sitter. Appreciate tele psychiatric evaluation. Monitor for now. 3. Essential hypertension. Continue antihypertensives. Blood pressure fairly well controlled. 4. Peripheral neuropathy. Continue gabapentin. 5. Abdominal hernia. CT scan of the abdomen and pelvis showing left upper abdominal wall fat containing hernia with abdominal wall defect measuring 4.4 x 5.6 cm. There is no evidence of any strangulation - monitor 6. Depression with suicidal thoughts. Continue antidepressants. 7. History of renal cell carcinoma. Status post left nephrectomy. Continue to monitor renal function. 8. Mild rhabdomyolysis. Continue IV hydration. 9. Thrombocytopenia, most probably secondary to underlying alcohol abuse. Monitor. 10. Transaminitis, most probably secondary to underlying alcohol abuse. Monitor. 11. Fluid, electrolytes and nutrition. Regular diet as tolerated. 12. Deep venous thrombosis prophylaxis with bilateral sequential compression devices. 13. Gastrointestinal prophylaxis. Histamine 2 receptor blockers. Problems: Subjective 24 Hr Interval Summary Free Text/Dictation No acute events overnight. Exam/Review of Systems Vital Signs Vitals Vital Signs Date Time Temp Pulse Resp B/P Pulse Ox O2 Delivery O2 Flow Rate FiO2 12/02/16 08:16 94 12/02/16 07:32 97.9 20 145/90 94 12/02/16 04:00 Room Air 11/30/16 18:10 2.0 Intake and Output 12/01/16 12/01/16 12/02/16 15:00 23:00 07:00 Intake Total 800 ml Balance 800 ml Exam GENERAL: This is an obese male patient lying in bed in no apparent distress. HEENT: Head normocephalic and atraumatic. Eyes: Anicteric sclerae. Conjunctivae clear. ENT: Nasal septum is midline. Oral mucosa is dry. NECK: Supple. No JVD noticed. RESPIRATORY: Bilaterally clear to auscultation. No adventitious breath sounds heard. No use of accessory muscles of respiration. CARDIAC: Regular rate and rhythm. No murmurs. ABDOMEN: Soft. Nontender. Left-sided hernia that is reducible. Bowel sounds hypoactive in all 4 quadrants. GENITOURINARY: Deferred. EXTREMITIES: No cyanosis, no clubbing. Bilateral lower extremity trace pedal edema. Peripheral pulses palpable. Bilateral toenail onychomycosis. NEUROLOGIC: The patient is awake, alert and oriented. Cranial nerves are grossly intact. Results Result Diagram: 12/02/16 0623 12/02/16 0623 Results 24 hrs Laboratory Tests Test 12/02/16 06:23 Alanine Aminotransferase (ALT/SGPT) 95 H Albumin 4.0 Albumin/Globulin Ratio 1.14 Alkaline Phosphatase 83 Anion Gap 18 H Aspartate Amino Transf (AST/SGOT) 163 H Basophils # 0.0 Basophils % 0.6 Blood Urea Nitrogen 22 H Calcium Level 10.1 Carbon Dioxide Level 30 Chloride Level 99 Creatine Kinase 132 # Creatine Kinase Index 0.7 Creatinine 0.98 Creatinine Kinase MB (Mass) 0.87 Direct Bilirubin 0.00 Eosinophils # 0.2 Eosinophils % 3.2 Globulin 3.50 H Glucose Level 111 Hematocrit 44.6 Hemoglobin 15.4 Indirect Bilirubin 0.4 Lymphocytes # 1.4 Lymphocytes % 21.8 Magnesium Level 1.4 L Mean Corpuscular Hemoglobin 33.0 Mean Corpuscular Hemoglobin Concent 34.5 Mean Corpuscular Volume 95.7 Mean Platelet Volume 11.4 #H Monocytes # 0.7 Monocytes % 11.0 Neutrophils # 4.1 Neutrophils % 62.9 Nucleated Red Blood Cells # 0.0 Nucleated Red Blood Cells % 0.0 Phosphorus Level 3.7 Platelet Count 92 L Potassium Level 3.6 Red Blood Count 4.66 L Red Cell Distribution Width 13.4 Sodium Level 143 Total Bilirubin 0.4 Total Protein 7.5 Troponin I 0.049 White Blood Count 6.6 Medications Medications Current Medications Dextrose/Sodium Chloride (D5-1/2ns) 1,000 ml @ 80 mls/hr [id number] IV Last administered on 12/01/16 00:59; Admin Dose 80 MLS/HR; Start 11/30/16 at 15:00 Ondansetron HCl (Zofran Inj) 4 mg Q6H PRN IV NAUSEA AND/OR VOMITING Last administered on 12/01/16 00:59; Admin Dose 4 MG; Start 11/30/16 at 13:30 Acetaminophen (Tylenol Tab) 650 mg Q6H PRN PO PAIN LEVEL 1-3 OR FEVER Last administered on 12/01/16 08:24; Admin Dose 650 MG; Start 11/30/16 at 13:30 Acetaminophen (Tylenol Supp) 650 mg Q6H PRN IN PAIN LEVEL 1-3 OR FEVER; Start 11/30/16 at 13:30 Docusate Sodium (Colace) 100 mg Q12H PRN PO CONSTIPATION Last administered on 08:26; Admin Dose 100 MG; Start 11/30/16 at 13:30 Bisacodyl (Dulcolax) 5 mg DAILY PRN PO CONSTIPATION; Start 11/30/16 at 13:30 Famotidine 20 mg 20 mg Q12 PO Last administered on 12/02/16 08:18; Admin Dose 20 MG; Start 11/30/16 at 16:00 Multivitamins/ Thiamine HCl/ Folic Acid/Sodium Chloride (Mvi-12 Adult/ Vitamin B1/Folic Acid/NS) 1,011.2 ml @ 100 mls/ hr DAILY@09 IVPB ; Start 12/01/16 at 09: 00 Amlodipine Besylate (Norvasc) 10 mg DAILY PO Last administered on 12/02/16 08: 19; Admin Dose 10 MG; Start 11/30/16 at 16:00 Gabapentin (Neurontin) 300 mg TID PO Last administered on 12/02/16 08:18; Admin Dose 300 MG; Start 11/30/16 at 16:00 Lorazepam (Ativan) 1 mg Q6H PRN IV AGITATION/ANXIETY Last administered on 02:33; Admin Dose 1 MG; Start 11/30/16 at 14:00 Chlordiazepoxide (Librium) 50 mg TID PO Last administered on 12/02/16 08:18; Admin Dose 50 MG; Start 11/30/16 at 16:00 Tramadol HCl (Ultram) 50 mg Q6H PRN PO Pain Last administered on 12/01/16 18:16 ; Admin Dose 50 MG; Start 12/01/16 at 11:00 Nicotine (Nicoderm 14 Mg/ 24hr) 1 patch DAILY TRANSDERM Last administered on 08:18; Admin Dose 1 PATCH; Start 12/01/16 at 11:00 Metoprolol Tartrate (Lopressor) 25 mg BID PO Last administered on 12/02/16 08: 19; Admin Dose 25 MG; Start 12/01/16 at 21:00 Sertraline HCl 100 mg 100 mg HS PO Last administered on 12/01/16 20:48; Admin Dose 100 MG; Start 12/01/16 at 21:00 Magnesium Sulfate (Magnesium Sulfate 2 Gm/50 ml) 50 ml @ 25 mls/hr ONCE ONCE IVPB ; Start 12/02/16 at 10:30; Stop 12/02/16 at 12:29; Status VALE MASON Dec 02, 2016 10:21
[2016-12-02] MEDS ORDERED: MAGNESIUM SULFATE 2 GM/50 ML 50 ML IVPB ONE (10:30)
[2016-12-02] MEDS: DEXTROSE 5%-0.45% NACL 1,000 ML IV SCH (17:00)
[2016-12-02] MEDS: traMADol 50 MG TAB PO PRN (19:48)
[2016-12-02] MEDS: SERTRALINE 50 MG TAB PO SCH (20:12)
[2016-12-03] VITALS (11 sets, daily range): BP systolic 135–158; BP diastolic 87–97; PULSE 67–78; RESP 16–20
[2016-12-03] MEDS: DEXTROSE 5%-0.45% NACL 1,000 ML IV SCH ×2 (05:30→17:45)
[2016-12-03] MEDS: traMADol 50 MG TAB PO PRN ×2 (05:32→19:45)
[2016-12-03 06:48] LABS: BASOPHILS % 0.5 % (0.0-2.0); EOSINOPHILS # 0.3 10^3/ul (0.0-0.5); EOSINOPHILS % 3.2 % (0.0-7.0); HEMATOCRIT 45.6 % (42.0-52.0); HEMOGLOBIN 15.7 g/dl (14.0-18.0); LYMPHOCYTES % 25.5 % (15.0-51.0); MEAN CORPUSCULAR HEMOGLOBIN 33.7 pg (29.0-33.0); MEAN CORPUSCULAR HGB CONC 34.5 g/dl (32.0-37.0); MEAN CORPUSCULAR VOLUME 97.8 fl (82.0-101.0); MEAN PLATELET VOLUME 9.7 fl (7.4-10.4); MONOCYTE # 0.8 10^3/ul (0.3-0.9); MONOCYTES % 10.3 % (0.0-11.0); NEUTROPHIL # 4.8 10^3/ul (1.6-7.5); NEUTROPHILS % 60.5 % (39.0-77.0); PLATELET COUNT 101 10^3/UL (140-440); RED BLOOD COUNT 4.66 10^6/ul (4.70-6.10); RED CELL DISTRIBUTION WIDTH 14.7 % (11.5-14.5); UNCORRECTED WBC 7.9 10^3/ul (4.8-10.8); WHITE BLOOD COUNT 7.9 10^3/ul (4.8-10.8)
[2016-12-03 06:54] LABS: CONDITION 1; LH ANALYZER COMMENTS 1; POTASSIUM 3.8 mmol/L (3.5-5.1)
[2016-12-03 06:56] LABS: CREATININE 1.1 mg/dl (0.61-1.24)
[2016-12-03 06:57] LABS: CALCIUM 10.2 mg/dl (8.4-10.2); MAGNESIUM 1.9 mg/dl (1.7-2.5); PHOSPHORUS 4.6 mg/dl (2.5-4.9)
[2016-12-03] MEDS: FAMOTIDINE 20 MG TAB PO SCH ×2 (08:44→20:17)
[2016-12-03] MEDS: METOPROLOL 25 MG TAB PO SCH ×2 (08:44→20:21)
[2016-12-03] MEDS: NICOTINE (14 MG/24 HR) PATCH TRANSDERM SCH (08:44)
[2016-12-03] MEDS: GABAPENTIN 300 MG CAP PO SCH ×3 (08:44→20:17)
[2016-12-03] MEDS: AMLODIPINE 10 MG TAB PO SCH (08:45)
[2016-12-03] MEDS: CHLORDIAZEPOXIDE 25 MG CAP PO SCH ×3 (08:46→20:17)
[2016-12-03] MEDS: MULTIVITAMINS 10 ML, THIAMINE 100 MG, FOLIC ACID 1 MG in SOD CHLORIDE 0.9% 1,000 ML IVPB SCH (08:46)
--- NOTE | 2016-12-03 09:12 | PN ---
Date/Time of Note Date/Time of Note DATE: 12/03/16 TIME: 09:10 Assessment/Plan VTE Prophylaxis VTE Prophylaxis Intervention: SCD's Lines/Catheters IV [facility] ([facility] Saline Lock Assessment/Plan Chief Complaint/Hosp Course ASSESSMENT AND PLAN: 55M with: 1. Acute alcohol intoxication - slowly improving. The patient is on daily banana bag. The patient is on a tapering dose of Librium. Continue IV Ativan as needed for any severe alcohol withdrawal, delirium. Get PT consult. 2. Suicidal ideation - Appreciate tele psychiatric evaluation. Monitor for now. 3. Essential hypertension. Continue antihypertensives. Blood pressure fairly well controlled. 4. Peripheral neuropathy. Continue gabapentin. 5. Abdominal hernia. CT scan of the abdomen and pelvis showing left upper abdominal wall fat containing hernia with abdominal wall defect measuring 4.4 x 5.6 cm. There is no evidence of any strangulation - monitor 6. Depression with suicidal thoughts. Continue antidepressants. 7. History of renal cell carcinoma. Status post left nephrectomy. Continue to monitor renal function. 8. Mild rhabdomyolysis. Continue IV hydration. 9. Thrombocytopenia, most probably secondary to underlying alcohol abuse. Monitor. 10. Transaminitis, most probably secondary to underlying alcohol abuse. Monitor. 11. Fluid, electrolytes and nutrition. Regular diet as tolerated. 12. Deep venous thrombosis prophylaxis with bilateral sequential compression devices. 13. Gastrointestinal prophylaxis. Histamine 2 receptor blockers. Problems: Subjective 24 Hr Interval Summary Free Text/Dictation No acute events overnight. Exam/Review of Systems Vital Signs Vitals Vital Signs Date Time Temp Pulse Resp B/P Pulse Ox O2 Delivery O2 Flow Rate FiO2 12/03/16 08:45 68 12/03/16 08:13 98.0 18 155/97 98 12/02/16 04:00 Room Air 11/30/16 18:10 2.0 Intake and Output 12/02/16 12/02/16 12/03/16 15:00 23:00 07:00 Intake Total 900 ml 800 ml Output Total 400 ml 600 ml Balance 500 ml 200 ml Exam GENERAL: This is an obese male patient sitting up in bed, still + hand tremors , answering questions HEENT: Head normocephalic and atraumatic. Eyes: Anicteric sclerae. Conjunctivae clear. ENT: Nasal septum is midline. Oral mucosa is dry. NECK: Supple. No JVD noticed. RESPIRATORY: Bilaterally clear to auscultation. No adventitious breath sounds heard. No use of accessory muscles of respiration. CARDIAC: Regular rate and rhythm. No murmurs. ABDOMEN: Soft. Nontender. Left-sided hernia that is reducible. Bowel sounds hypoactive in all 4 quadrants. GENITOURINARY: Deferred. EXTREMITIES: No cyanosis, no clubbing. Bilateral lower extremity trace pedal edema. Peripheral pulses palpable. Bilateral toenail onychomycosis. NEUROLOGIC: The patient is awake, alert and oriented. Cranial nerves are grossly intact. Results Result Diagram: 12/03/1652 12/03/16 0552 Results 24 hrs Laboratory Tests Test 12/03/16 05:52 Anion Gap 18 H Basophils # 0.0 Basophils % 0.5 Blood Morphology Comment Blood Urea Nitrogen 30 H Calcium Level 10.2 Carbon Dioxide Level 26 Chloride Level 101 Creatinine 1.10 Eosinophils # 0.3 Eosinophils % 3.2 Glucose Level 132 Hematocrit 45.6 Hemoglobin 15.7 Lymphocytes # 2.0 Lymphocytes % 25.5 Magnesium Level 1.9 Mean Corpuscular Hemoglobin 33.7 H Mean Corpuscular Hemoglobin Concent 34.5 Mean Corpuscular Volume 97.8 Mean Platelet Volume 9.7 Monocytes # 0.8 Monocytes % 10.3 Neutrophils # 4.8 Neutrophils % 60.5 Nucleated Red Blood Cells # 0.0 Nucleated Red Blood Cells % 0.0 Phosphorus Level 4.6 Platelet Count 101 L Potassium Level 3.8 Red Blood Count 4.66 L Red Cell Distribution Width 14.7 H Sodium Level 141 White Blood Count 7.9 Medications Medications Current Medications Dextrose/Sodium Chloride (D5-1/2ns) 1,000 ml @ 80 mls/hr [id number] IV Last administered on 12/01/16 00:59; Admin Dose 80 MLS/HR; Start 11/30/16 at 15:00 Ondansetron HCl (Zofran Inj) 4 mg Q6H PRN IV NAUSEA AND/OR VOMITING Last administered on 12/01/16 00:59; Admin Dose 4 MG; Start 11/30/16 at 13:30 Acetaminophen (Tylenol Tab) 650 mg Q6H PRN PO PAIN LEVEL 1-3 OR FEVER Last administered on 12/01/16 08:24; Admin Dose 650 MG; Start 11/30/16 at 13:30 Acetaminophen (Tylenol Supp) 650 mg Q6H PRN [place] PAIN LEVEL 1-3 OR FEVER; Start 11/30/16 at 13:30 Docusate Sodium (Colace) 100 mg Q12H PRN PO CONSTIPATION Last administered on 08:26; Admin Dose 100 MG; Start 11/30/16 at 13:30 Bisacodyl (Dulcolax) 5 mg DAILY PRN PO CONSTIPATION; Start 11/30/16 at 13:30 Famotidine 20 mg 20 mg Q12 PO Last administered on 12/03/16 08:44; Admin Dose 20 MG; Start 11/30/16 at 16:00 Multivitamins/ Thiamine HCl/ Folic Acid/Sodium Chloride (Mvi-12 Adult/ Vitamin B1/Folic Acid/NS) 1,011.2 ml @ 100 mls/ hr DAILY@09 IVPB ; Start 12/01/16 at 09: 00 Amlodipine Besylate (Norvasc) 10 mg DAILY PO Last administered on 12/03/16 08: 45; Admin Dose 10 MG; Start 11/30/16 at 16:00 Gabapentin (Neurontin) 300 mg TID PO Last administered on 12/03/16 08:44; Admin Dose 300 MG; Start 11/30/16 at 16:00 Lorazepam (Ativan) 1 mg Q6H PRN IV AGITATION/ANXIETY Last administered on 02:33; Admin Dose 1 MG; Start 11/30/16 at 14:00 Chlordiazepoxide (Librium) 50 mg TID PO Last administered on 12/03/16 08:46; Admin Dose 50 MG; Start 11/30/16 at 16:00 Tramadol HCl (Ultram) 50 mg Q6H PRN PO Pain Last administered on 12/03/16 05:32 ; Admin Dose 50 MG; Start 12/01/16 at 11:00 Nicotine (Nicoderm 14 Mg/ 24hr) 1 patch DAILY TRANSDERM Last administered on 08:44; Admin Dose 1 PATCH; Start 12/01/16 at 11:00 Metoprolol Tartrate (Lopressor) 25 mg BID PO Last administered on 12/03/16 08: 44; Admin Dose 25 MG; Start 12/01/16 at 21:00 Sertraline HCl (Zoloft) 100 mg HS PO Last administered on 12/02/16t 20:12; Admin Dose 100 MG; Start 12/01/16 at 21:00 VALE CASON Dec 03, 2016 09:12
[2016-12-03] MEDS: SERTRALINE 50 MG TAB PO SCH (20:21)
[2016-12-04] VITALS (7 sets, daily range): BP systolic 136–157; BP diastolic 73–95; PULSE 66–79; RESP 18–20
[2016-12-04] MEDS: traMADol 50 MG TAB PO PRN (06:18)
[2016-12-04] MEDS: DEXTROSE 5%-0.45% NACL 1,000 ML IV SCH (06:18)
[2016-12-04 06:53] LABS: BASOPHILS % 0.6 % (0.0-2.0); EOSINOPHILS # 0.2 10^3/ul (0.0-0.5); EOSINOPHILS % 2.3 % (0.0-7.0); HEMATOCRIT 42.2 % (42.0-52.0); HEMOGLOBIN 14.5 g/dl (14.0-18.0); LYMPHOCYTES # 1.6 10^3/ul (0.8-2.9); MEAN CORPUSCULAR HEMOGLOBIN 33.5 pg (29.0-33.0); MEAN CORPUSCULAR HGB CONC 34.4 g/dl (32.0-37.0); MEAN CORPUSCULAR VOLUME 97.3 fl (82.0-101.0); MEAN PLATELET VOLUME 9.5 fl (7.4-10.4); MONOCYTE # 0.9 10^3/ul (0.3-0.9); MONOCYTES % 12.2 % (0.0-11.0); NEUTROPHIL # 4.5 10^3/ul (1.6-7.5); NEUTROPHILS % 62.9 % (39.0-77.0); PLATELET COUNT 115 10^3/UL (140-440); RED BLOOD COUNT 4.33 10^6/ul (4.70-6.10); RED CELL DISTRIBUTION WIDTH 14.6 % (11.5-14.5); UNCORRECTED WBC 7.2 10^3/ul (4.8-10.8); WHITE BLOOD COUNT 7.2 10^3/ul (4.8-10.8)
[2016-12-04 06:58] LABS: CONDITION 1; LH ANALYZER COMMENTS 1
[2016-12-04 07:02] LABS: POTASSIUM 3.5 mmol/L (3.5-5.1)
[2016-12-04 07:04] LABS: CREATININE 0.99 mg/dl (0.61-1.24)
[2016-12-04 07:05] LABS: CALCIUM 9.2 mg/dl (8.4-10.2)
[2016-12-04] MEDS: CHLORDIAZEPOXIDE 25 MG CAP PO SCH (08:52)
[2016-12-04] MEDS: GABAPENTIN 300 MG CAP PO SCH (08:52)
[2016-12-04] MEDS: AMLODIPINE 10 MG TAB PO SCH (08:52)
[2016-12-04] MEDS: FAMOTIDINE 20 MG TAB PO SCH (08:52)
[2016-12-04] MEDS: METOPROLOL 25 MG TAB PO SCH (08:53)
[2016-12-04] MEDS: MULTIVITAMINS 10 ML, THIAMINE 100 MG, FOLIC ACID 1 MG in SOD CHLORIDE 0.9% 1,000 ML IVPB SCH (08:57)
[2016-12-04] MEDS: NICOTINE (14 MG/24 HR) PATCH TRANSDERM SCH (09:08)
--- NOTE | 2016-12-04 10:44 | PDOCDIS ---
Discharge Instructions CONDITION Patient Condition: Fair HOME CARE INSTRUCTIONS: Diet Instructions: Regular ACTIVITY: Activity Restrictions: Slowly Increase Activity Rest between Activity Avoid heavy lifting FOLLOW UP/APPOINTMENTS Appointments Follow up with PCP in one week Follow up with out-pt Psych as out-pt SAMANTHA ESTES MD Dec 04, 2016 10:44
[2016-12-04] MEDS ORDERED: GABA300C16 PO (10:49)
[2016-12-04] MEDS ORDERED: FAMO20TA18 PO (10:49)
[2016-12-04] MEDS ORDERED: Nicotine (14 Mg/24 Hr) TRANSDERM (10:49)
[2016-12-04] MEDS ORDERED: METO-448 PO (10:49)
[2016-12-04] MEDS ORDERED: THIA100T10 PO (10:49)
[2016-12-04] MEDS ORDERED: FOLI-49 PO (10:49)
[2016-12-04] MEDS ORDERED: MULT1CAP20 PO (10:49)
[2016-12-04] MEDS ORDERED: SERT50TA6 PO (10:49)
[2016-12-04] MEDS ORDERED: CHLO25CA9 PO (10:49)
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
== END 2016-12-04 13:40 | disposition home or self-care (01) | DRG 897 ==
LOC: E/R 06:14 → TEL 09:56
PROVIDERS: ADMIT Family Medicine; ATTEND Family Medicine
DX: F10.221 Alcohol dependence with intoxication delirium (principal); D69.59 Other secondary thrombocytopenia; M62.82 Rhabdomyolysis; F33.2 Major depressive disorder, recurrent severe without psychotic features; G62.9 Polyneuropathy, unspecified; Y90.5 Blood alcohol level of 100-119 mg/100 ml; I10 Essential (primary) hypertension; F10.231 Alcohol dependence with withdrawal delirium; K46.9 Unspecified abdominal hernia without obstruction or gangrene; T14.91 Suicide attempt; Y93.02 Activity, running; Y92.413 State road as the place of occurrence of the external cause; F17.210 Nicotine dependence, cigarettes, uncomplicated; Z85.528 Personal history of other malignant neoplasm of kidney
CPT/HCPCS: 36415; 74176; 80048; 80053; 80076; 80306; 80307; 81001; 81003; 82550; 82553; 83690; 83735; 84100; 84443; 84484; 85025; 96374; 96375; 96376; 97162; J2060; J2270; J2405; J3411; J3475; J7030; J7042

== ENCOUNTER 2016-12-25 01:03 | Emergency (ER) | payer MEDICAID ==
[~2016-12-25] VITALS: Ht 195.6 cm; Wt 113.6 kg
[~2016-12-25 01:03] MED LIST: AMLO-147 PO; CHLO25CA9 PO; FAMO20TA18 PO; FOLI-49 PO; GABA300C16 PO; METO-448 PO; MULT1CAP20 PO; Nicotine (14 Mg/24 Hr) TRANSDERM; SERT50TA6 PO; THIA100T10 PO
[2016-12-25 01:18] VITALS: Ht 195.6 cm; Wt 113.6 kg
[2016-12-25] MEDS ORDERED: CHLORDIAZEPOXIDE 25 MG CAP PO ONE ×3 (02:00→14:00)
[2016-12-25 02:08] LABS: ADD SCAN DIFF NO
[2016-12-25 02:15] LABS: BASOPHIL # 0.1 10^3/ul (0.0-0.1); BASOPHILS % 0.5 % (0.0-2.0); EOSINOPHILS # 0.2 10^3/ul (0.0-0.5); EOSINOPHILS % 2.1 % (0.0-7.0); HEMATOCRIT 46.4 % (42.0-52.0); LYMPHOCYTES # 2.2 10^3/ul (0.8-2.9); LYMPHOCYTES % 22.8 % (15.0-51.0); MEAN CORPUSCULAR HEMOGLOBIN 32.5 pg (29.0-33.0); MEAN CORPUSCULAR HGB CONC 34.5 g/dl (32.0-37.0); MEAN CORPUSCULAR VOLUME 94.1 fl (82.0-101.0); MEAN PLATELET VOLUME 10.1 fl (7.4-10.4); MONOCYTE # 0.7 10^3/ul (0.3-0.9); MONOCYTES % 7.2 % (0.0-11.0); NEUTROPHIL # 6.4 10^3/ul (1.6-7.5); NEUTROPHILS % 66.9 % (39.0-77.0); PLATELET COUNT 210 10^3/UL (140-415); RED BLOOD COUNT 4.93 10^6/ul (4.70-6.10); RED CELL DISTRIBUTION WIDTH 14.7 % (11.5-14.5); WHITE BLOOD COUNT 9.5 10^3/ul (4.8-10.8)
[2016-12-25 02:33] LABS: ALBUMIN 4.9 g/dl (3.3-4.9)
[2016-12-25 02:34] LABS: CHLORIDE 106 mmol/L (97-110); POTASSIUM 3.8 mmol/L (3.5-5.1); SODIUM 151 mmol/L (135-144)
[2016-12-25 02:36] LABS: ANION GAP 24 (8-16); ASPARTATE AMINO TRANSFERASE 93 IU/L (15-46); BILIRUBIN,INDIRECT 0.1 mg/dl (0-1.1); BILIRUBIN,TOTAL 0.1 mg/dl (0.2-1.3); CARBON DIOXIDE 25 mmol/L (21-31); CREATININE 1.06 mg/dl (0.61-1.24)
[2016-12-25 02:37] LABS: ALANINE AMINOTRANSFERASE 67 IU/L (13-69); ALBUMIN/GLOBULIN RATIO 1.22; ALKALINE PHOSPHATASE 113 IU/L (42-121); BLOOD UREA NITROGEN 10 mg/dl (7-20); CALCIUM 9.8 mg/dl (8.4-10.2); GLUCOSE 103 mg/dl (70-220); TOTAL PROTEIN 8.9 g/dl (6.1-8.1)
[2016-12-25 02:40] LABS: ACETAMINOPHEN < 10.0 ug/ml (10.0-30.0); SALICYLATE < 1.0 mg/dl (5.0-30.0)
[2016-12-25] MEDS ORDERED: HYDROCODONE/APAP (10/325) TAB PO ONE ×3 (03:00→22:30)
[2016-12-25 03:06] LABS: ADD UMIC YES; URINE BILIRUBIN (Dip) NEGATIVE (NEGATIVE); URINE BLOOD (Dip) 2+ (NEGATIVE); URINE COLOR LT. YELLOW (YELLOW); URINE GLUCOSE (Dip) NEGATIVE (NEGATIVE); URINE KETONES (Dip) NEGATIVE (NEGATIVE); URINE LEUKOCYTE ESTERASE (Dip) NEGATIVE (NEGATIVE); URINE NITRITE (Dip) NEGATIVE (NEGATIVE); URINE TOTAL PROTEIN (Dip) 2+ (NEGATIVE); URINE UROBILINOGEN (Dip) 0.2 E.U./dL (0.1-1.0)
--- NOTE | 2016-12-25 03:11 | ERA ---
ER Documentation Chief Complaint Date/Time DATE: 12/25/16 TIME: 03:10 Chief Complaint SI w/ plan: run through traffic,c/o L side abd pain hx renal carcinoma HPI This is a 56-year-old mouse is suicidal with a plan around driving. Sensation is been suicidal for the past 12-16 hours. Is a history of renal carcinoma. ROS All systems reviewed and are negative except as per history of present illness. Medications Home Meds Active Scripts Multivitamin (Multivitamins) 1 Each Capsule, 1 EACH PO DAILY, #30 CAP Prov:SAMANTHA ESTES MD 12/04/16 Thiamine* (Thiamine*) 100 Mg Tablet, 100 MG PO DAILY, #30 TAB Prov:SAMANTHA ESTES MD 12/04/16 Folic Acid* (Folic Acid*) 1 Mg Tablet, 1 MG PO DAILY, #30 TAB Prov:SAMANTHA ESTES MD 12/04/16 Sertraline Hcl* (Sertraline Hcl*) 50 Mg Tablet, 100 MG PO HS, #30 TAB Prov:SAMANTHA ESTES MD 12/04/16 [Nicotine (14 Mg/24 Hr)] 1 PATCH PATCH No Conflict Check, 1 PATCH TRANSDERM DAILY for 30 Days Prov:SAMANTHA ESTES MD 12/04/16 Metoprolol Tartrate* (Lopressor*) 25 Mg Tab, 25 MG PO BID, #60 TAB Prov:SAMANTHA ESTES MD 12/04/16 Gabapentin* (Gabapentin*) 300 Mg Capsule, 300 MG PO TID for 30 Days, CAP Prov:SAMANTHA ESTES MD 12/04/16 Famotidine* (Famotidine*) 20 Mg Tablet, 20 MG PO DAILY, #30 TAB Prov:SAMANTHA ESTES MD 12/04/16 Chlordiazepoxide* (Chlordiazepoxide*) 25 Mg Capsule, 25 MG PO TID for 7 Days, CAP Prov:SAMANTHA ESTES MD 12/04/16 Reported Medications Amlodipine Besylate* (Amlodipine Besylate*) 10 Mg Tablet, 10 MG PO DAILY, #30 TAB 11/30/16 Allergies Allergies: Coded Allergies: No Known Allergy (Unverified , 11/30/16) PMhx/Soc History of Surgery: Yes (L nephrectomy) Anesthesia Reaction: No Hx Neurological Disorder: Yes (peripheral neuropathy) Hx Respiratory Disorders: No Hx Cardiac Disorders: Yes (HTN) Hx Psychiatric Problems: Yes (SI) Hx Miscellaneous Medical Probl: Yes (ETOH abuse, renal carcinoma, neuropathy, depression) Hx Alcohol Use: Yes (last drink yest: "usually 1 pint vodka a day") Hx Substance Use: No Hx Tobacco Use: Yes (10 cig/day) Smoking Status: Current every day smoker Physical Exam Vitals Vital Signs Date Time Temp Pulse Resp B/P Pulse Ox O2 Delivery O2 Flow Rate FiO2 12/25/16 01:18 97.7 92 18 130/100 97 Physical Exam Const: [] Head: Atraumatic Eyes: Normal Conjunctiva ENT: Normal External Ears, Nose and Mouth. Neck: Full range of motion..~ No meningismus. Resp: Clear to auscultation bilaterally Cardio: Regular rate and rhythm, no murmurs Abd: Soft, non tender, non distended. Normal bowel sounds Skin: No petechiae or rashes Back: No midline or flank tenderness Ext: No cyanosis, or edema Neur: Awake and alert Psych: Normal Mood and Affect Result Diagram: 12/25/1614412/25/16144 Results 24 hrs Laboratory Tests Test 12/25/16 01:20 12/25/16 01:45 Urine Bilirubin NEGATIVE Urine Clarity CLEAR Urine Color LT. YELLOW Urine Glucose NEGATIVE% Urine Hemoglobin 2+ Urine Ketones NEGATIVE Urine Leukocyte Esterase NEGATIVE Urine Microscopic RBC Pending Urine Microscopic WBC Pending Urine Nitrite NEGATIVE Urine Specific [place] 1.020 Urine Total Protein 2+ Urine Urobilinogen 0.2 E.U./dL Urine pH 6.0 Acetaminophen Level < 10.0ug/ml Alanine Aminotransferase (ALT/SGPT) 67IU/L Albumin 4.9g/dl Albumin/Globulin Ratio 1.22 Alkaline Phosphatase 113IU/L Anion Gap 24 Aspartate Amino Transf (AST/SGOT) 93IU/L Basophils # 0.110^3/ul Basophils % 0.5% Blood Urea Nitrogen 10mg/dl Calcium Level 9.8mg/dl Carbon Dioxide Level 25mmol/L Chloride Level 106mmol/L Creatinine 1.06mg/dl Direct Bilirubin 0.00mg/dl Eosinophils # 0.210^3/ul Eosinophils % 2.1% Ethyl Alcohol Level 214.0mg/dl Globulin 4.00g/dl Glucose Level 103mg/dl Hematocrit 46.4% Hemoglobin 16.0g/dl Indirect Bilirubin 0.1mg/dl Lymphocytes # 2.210^3/ul Lymphocytes % 22.8% Mean Corpuscular Hemoglobin 32.5pg Mean Corpuscular Hemoglobin Concent 34.5g/dl Mean Corpuscular Volume 94.1fl Mean Platelet Volume 10.1fl Monocytes # 0.710^3/ul Monocytes % 7.2% Neutrophils # 6.410^3/ul Neutrophils % 66.9% Nucleated Red Blood Cells # 0.010^3/ul Nucleated Red Blood Cells % 0.0/100WBC Platelet Count 63849^3/UL Potassium Level 3.8mmol/L Red Blood Count 4.9310^6/ul Red Cell Distribution Width 14.7% Salicylates Level < 1.0mg/dl Sodium Level 151mmol/L Total Bilirubin 0.1mg/dl Total Protein 8.9g/dl White Blood Count 9.510^3/ul Current Medications Medications (Trade) Dose Ordered Sig/Remi Route PRN Reason Start Time Stop Time Status Last Admin Dose Admin Chlordiazepoxide (Librium) 50 mg ONCE ONCE PO 12/25/16 02:00 12/25/16 02:01 DC 12/25/16 01:59 Acetaminophen/ Hydrocodone Bitart ([place] (10/325)) 1 tab ONCE ONCE PO 12/25/16 03:00 12/25/16 03:01 DC 12/25/16 03:04 Procedures/MDM Patient's behavioral symptoms have stabilized while in the department. Patient is medically cleared and appropriate for psychiatric evaluation and work up. No e/o neurologic, toxic, infectious, or metabolic cause. Departure Diagnosis: Primary Impression: Suicidal ideation Condition: Stable ADRIANO HOLDEN Dec 25, 2016 03:11
[2016-12-25 03:22] LABS: BENZODIAZEPINES Positive (NEGATIVE)
[2016-12-25 03:23] LABS: CANNABINOIDS Negative (NEGATIVE)
[2016-12-25 03:28] LABS: SQUAMOUS EPITHELIAL CELL,UR OCCASIONAL; URINE RBCS 0-2 /HPF (0)
[2016-12-25 03:29] LABS: BARBITURATES Negative (NEGATIVE); COCAINE Negative (NEGATIVE); OPIATES Negative (NEGATIVE)
--- NOTE | 2016-12-25 05:17 | PSY ---
Date/Time of Note Date/Time of Note DATE: 12/25/16 TIME: 05:10 Psychiatric Subjective Eval Consent Pt consented to telemedicine: Yes Subjective Evaluation Patient location: emergency Chief Complaint: SI w/ plan: run through traffic,c/o L side abd pain hx renal carcinoma Reason for consult: suicidal History of present illness patient is a 56 yo male with PPH Of depression, alcohol abuse and anxiety who called 911 because he wanted to kill himself by running into traffic. Patient states that he has been feeling depressed, hopeless and helpless for the past few days since his grilfriend left him and now wants to , does not see any meaning to life, states that he has been hearing voices telling him to kill himself, denies any HI, he has not slept well for few days, decrease appetite, isolate himself, drinks alcohol daily heavily. denies any current manic symptoms , no drug use. Past psychiatric history several past suicidal attempts last was 2 months ago Hospitalization: yes Family History Problems Family History Problems: (1) Family history of hypertension Relations: 33 FATHER (2) FH: non-Hodgkin's lymphoma Relations: 33 FATHER Medical history Problems Medical Problems: (1) Abdominal pain Status: Acute (2) Abdominal wall hernia Status: Acute (3) Alcohol abuse Status: Acute (4) Alcohol withdrawal Status: Acute (5) Depression Status: Acute (6) Suicidal ideation Status: Acute (7) Suicidal ideations Status: Acute Allergies: Coded Allergies: No Known Allergy (Unverified , 11/30/16) Substance Abuse Substance abuse history: Yes (alcohol ) Prior substance abuse treatmen: Yes (alcohol ) Social History Marital status: single Level of education: hs DPA/Conservatorship: No Occupation/Prison: unemployed Psychiatric Objective Eval Review of Systems: Review of Systems: Not Applicable Physical Examination: Physical Examination: Applicable Sleep: Insomnia Appetite: Decreased Energy: Decreased Interest: Decreased Mental Status Examination: Appearance: Disheveled Eye Contact: Good Psychomotor Activity: Normal Behavior: Cooperative Speech: Clear AFFECT: Depressed Mood: Depressed Though Process: Linear Thought Content: Hallucinations Suicidal: Yes Homicidal: No On 72 hour hold: No Orientation: x3 Cognition: Alert Insight: Impared Judgement: Impared Attention Span: Intact Laboratory Results Laboratory Tests Test 12/25/16 01:20 12/25/16 01:45 12/25/16 02:30 Urine Bilirubin NEGATIVE Urine Clarity CLEAR Urine Color LT. YELLOW Urine Glucose NEGATIVE% Urine Hemoglobin 2+ Urine Ketones NEGATIVE Urine Leukocyte Esterase NEGATIVE Urine Microscopic RBC 0-2/HPF Urine Microscopic WBC 0-2/HPF Urine Nitrite NEGATIVE Urine Specific Arabi 1.020 Urine Squamous Epithelial Cells OCCASIONAL Urine Total Protein 2+ Urine Urobilinogen 0.2 E.U./dL Urine pH 6.0 Acetaminophen Level < 10.0ug/ml Alanine Aminotransferase (ALT/SGPT) 67IU/L Albumin 4.9g/dl Albumin/Globulin Ratio 1.22 Alkaline Phosphatase 113IU/L Anion Gap 24 Aspartate Amino Transf (AST/SGOT) 93IU/L Basophils # 0.110^3/ul Basophils % 0.5% Blood Urea Nitrogen 10mg/dl Calcium Level 9.8mg/dl Carbon Dioxide Level 25mmol/L Chloride Level 106mmol/L Creatinine 1.06mg/dl Direct Bilirubin 0.00mg/dl Eosinophils # 0.210^3/ul Eosinophils % 2.1% Ethyl Alcohol Level 214.0mg/dl Globulin 4.00g/dl Glucose Level 103mg/dl Hematocrit 46.4% Hemoglobin 16.0g/dl Indirect Bilirubin 0.1mg/dl Lymphocytes # 2.210^3/ul Lymphocytes % 22.8% Mean Corpuscular Hemoglobin 32.5pg Mean Corpuscular Hemoglobin Concent 34.5g/dl Mean Corpuscular Volume 94.1fl Mean Platelet Volume 10.1fl Monocytes # 0.710^3/ul Monocytes % 7.2% Neutrophils # 6.410^3/ul Neutrophils % 66.9% Nucleated Red Blood Cells # 0.010^3/ul Nucleated Red Blood Cells % 0.0/100WBC Platelet Count 56668^3/UL Potassium Level 3.8mmol/L Red Blood Count 4.9310^6/ul Red Cell Distribution Width 14.7% Salicylates Level < 1.0mg/dl Sodium Level 151mmol/L Total Bilirubin 0.1mg/dl Total Protein 8.9g/dl White Blood Count 9.510^3/ul Urine Amphetamines Screen Negative Urine Barbiturates Negative Urine Benzodiazepines Screen Positive Urine Cannabinoids Negative Urine Cocaine Screen Negative Urine Opiates Screen Negative Assessment and Plan Assessment/Diagnosis Belcher I: 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 Significant recent DETERIORATION in function, behavior and thought processes Command hallucinations with violent content Substance ABUSE in conjunction with another psychiatric disorder Non-Compliance with Outpatient Treatment Patient has failed outpatient and requires further inpatient assessment Medication changes require observation unavailable at a lower level of care 7040 Recommendation: ELYSSA Sharma MD Dec 25, 2016 05:17
[2016-12-25] MEDS ORDERED: IBUPROFEN 800 MG TAB PO ONE (09:30)
--- NOTE | 2016-12-25 11:50 | QN ---
Documentation Comment Observation Note: Time: 4 hours Family Hx: Negative for diabetes Evaluation: Multiple exams showed improving symptoms and no evidence of clinical decompensation. The patient is still pending psychiatric transfer at this time. DANE AYERS MD Dec 25, 2016 11:50
[2016-12-25] MEDS ORDERED: LORAZEPAM 1 MG TAB PO ONE (18:30)
[2016-12-25] MEDS ORDERED: AMLODIPINE 10 MG TAB PO ONE (19:00)
[2016-12-25] MEDS ORDERED: METOPROLOL 25 MG TAB PO ONE (19:00)
[2016-12-26] MEDS ORDERED: LORAZEPAM 1 MG TAB PO ONE ×2 (01:00→13:30)
--- NOTE | 2016-12-26 02:31 | QN ---
Documentation Comment Observation Note: Time: 4 hours Family Hx: No Hypertension Evaluation: Multiple exams showed improving symptoms and no evidence of decompensation. Pending behavioral health unit transfer ADRIANO HOLDEN Dec 26, 2016 02:31
[2016-12-26] MEDS ORDERED: HYDROCODONE/APAP (10/325) TAB PO ONE ×3 (03:30→18:00)
[2016-12-26] MEDS ORDERED: NICARDipine HCL 30 MG CAPSULE PO ONE ×3 (07:30→17:00)
--- NOTE | 2016-12-26 17:59 | QN ---
Documentation Comment Time: 16:00 Observation Note: Time: 4 hours Family Hx: No Hypertension Evaluation: H At 14:45 patient evaluated by ANGIE Morales and placed on a 5150 hold due to suicidality. Accepted for transfer to [facility] by Dr. Hernandez. ypertension treated with Cardene 30 mg orally. Blood pressure controlled, BP 125/93. [place] 10/325 with good relief of chronic abdominal pain due chronic hernia pain. Transfer via BLS ambulance pending. AZALIA HERRERA MD Dec 26, 2016 17:59
[2016-12-26] MEDS ORDERED: METOPROLOL 25 MG TAB PO ONE (19:00)
[2016-12-26] MEDS ORDERED: AMLODIPINE 10 MG TAB PO ONE (19:00)
[2016-12-26 19:32] VITALS: BP 137/91; PULSE 92; RESP 16; TEMP 98.5
== END 2016-12-26 19:43 ==
LOC: E/R 01:03
DX: F29 Unspecified psychosis not due to a substance or known physiological condition (principal); R40.2242 Coma scale, best verbal response, confused conversation, at arrival to emergency department; R45.851 Suicidal ideations; I10 Essential (primary) hypertension; F17.210 Nicotine dependence, cigarettes, uncomplicated; R40.2142 Coma scale, eyes open, spontaneous, at arrival to emergency department; R40.2362 Coma scale, best motor response, obeys commands, at arrival to emergency department
CPT/HCPCS: 36415; 80053; 80306; 80307; 81001; 85025; Z7502; Z7610; 81003; 99285